=== PATIENT | female | born 1985 | race Caucasian/White ===

== ENCOUNTER 2018-12-12 13:33 | Inpatient (IN) | payer BC ==
[2018-12-12] MEDS: ONDANSETRON (ODT) 4 MG TAB ODT (14:33)
[2018-12-12] MEDS: HYDROCODONE/APAP (5/325) TAB PO (14:33)
[2018-12-12 14:41] LABS: ADD MAN DIFF? NO
[2018-12-12 14:44] LABS: WHITE BLOOD COUNT 24.7 10^3/ul (4.8-10.8)
[2018-12-12 14:44] LABS: ABNORMAL IP MESSAGE 1; BASOPHILS % 0.2 % (0.0-2.0); EOSINOPHILS # 0.1 10^3/ul (0.0-0.5); EOSINOPHILS % 0.3 % (0.0-7.0); HEMATOCRIT 35.5 % (37.0-47.0); HEMOGLOBIN 11.2 g/dl (12.0-16.0); LYMPHOCYTES # 1.5 10^3/ul (0.8-2.9); LYMPHOCYTES % 5.9 % (15.0-51.0); MEAN CORPUSCULAR HEMOGLOBIN 27.1 pg (29.0-33.0); MEAN CORPUSCULAR HGB CONC 31.5 g/dl (32.0-37.0); MEAN PLATELET VOLUME 10.4 fl (7.4-10.4); MONOCYTE # 1.1 10^3/ul (0.3-0.9); MONOCYTES % 4.3 % (0.0-11.0); NEUTROPHIL # 21.9 10^3/ul (1.6-7.5); NEUTROPHILS % 88.5 % (39.0-77.0); PLATELET COUNT 260 10^3/UL (140-415); RED BLOOD COUNT 4.13 10^6/ul (4.20-5.40); RED CELL DISTRIBUTION WIDTH 14.4 % (11.5-14.5)
[2018-12-12 14:45] LABS: POSITIVE DIFF @See below
[2018-12-12 14:47] LABS: ADD UMIC YES; UR ASCORBIC ACID NEGATIVE (NEGATIVE); UR BACTERIA FEW /HPF (NONE SEEN); UR BILIRUBIN (Dip) NEGATIVE (NEGATIVE); UR BLOOD (Dip) 3+ mg/dL (NEGATIVE); UR CLARITY CLEAR (CLEAR); UR COLOR YELLOW (YELLOW); UR GLUCOSE (Dip) NEGATIVE (NEGATIVE); UR KETONES (Dip) NEGATIVE (NEGATIVE); UR LEUKOCYTE ESTERASE (Dip) TRACE Leu/ul (NEGATIVE); UR MUCUS FEW /HPF (NONE SEEN); UR NITRITE (Dip) NEGATIVE (NEGATIVE); UR RBC 15 /HPF (0-5); UR SPECIFIC GRAVITY (Dip) 1.006 (1.003-1.030); UR SQUAMOUS EPITHELIAL CELL FEW /HPF (FEW); UR TOTAL PROTEIN (Dip) NEGATIVE (NEGATIVE); UR UROBILINOGEN (Dip) NEGATIVE (NEGATIVE); UR WBC 2 /HPF (0-5)
[2018-12-12 15:04] LABS: ALANINE AMINOTRANSFERASE 14 IU/L (13-69); ALBUMIN 3.8 g/dl (3.3-4.9); ALBUMIN/GLOBULIN RATIO 1.11; ALKALINE PHOSPHATASE 84 IU/L (42-121); ANION GAP 8 (5-13); ASPARTATE AMINO TRANSFERASE 17 IU/L (15-46); BILIRUBIN,INDIRECT 0.5 mg/dl (0-1.1); BILIRUBIN,TOTAL 0.5 mg/dl (0.2-1.3); BLOOD UREA NITROGEN 6 mg/dl (7-20); CALCIUM 9.2 mg/dl (8.4-10.2); CARBON DIOXIDE 29 mmol/L (21-31); CHLORIDE 100 mmol/L (97-110); CREATININE 0.86 mg/dl (0.44-1.00); Estimated GFR > 60 mL/min (>60); GLUCOSE 106 mg/dl (70-220); LIPASE < 10 U/L (23-300); POTASSIUM 3.6 mmol/L (3.5-5.1); SODIUM 137 mmol/L (135-144); TOTAL PROTEIN 7.2 g/dl (6.1-8.1)
[2018-12-12] MEDS: SOD CHLORIDE 0.9% 100 ML (16:04)
[2018-12-12] MEDS: IOHEXOL 300MG/ML 150 ML BTL ×2 (16:04→20:45)
[2018-12-12] MEDS: SODIUM CHLORIDE 0.9% 1L BAG IV* (17:44)
[2018-12-12] MEDS: PIPER-TAZO 3.375 GM IV (PMX) 100 ML IVPB (17:44)
[2018-12-12 18:18] LABS: PROTIME 15.3 Sec (11.9-14.9); PT RATIO 1.2
[2018-12-12 18:19] LABS: PARTIAL THROMBOPLASTIN TIME 33.6 Sec (23.0-35.0)
[2018-12-12] MEDS ORDERED: NACL 0.9% 3 ML SYG IV (18:30)
[2018-12-12] MEDS ORDERED: MAGNESIUM HYDROXIDE 30ML CUP PO (18:30)
[2018-12-12] MEDS ORDERED: ACETAMINOPHEN 325 MG TAB PO ×2 (18:30)
[2018-12-12] MEDS ORDERED: ONDANSETRON 4 MG INJ IV ×2 (18:30)
[2018-12-12] MEDS ORDERED: NITROGLYCERIN (SL) 0.4 MG TAB SL (18:30)
[2018-12-12] MEDS ORDERED: hydrALAzine 20 MG INJ IV (18:30)
[2018-12-12] MEDS ORDERED: LORAZEPAM 2 MG INJ IV (18:30)
[2018-12-12] MEDS ORDERED: HYDROCODONE/APAP (5/325) TAB PO (18:30)
[2018-12-12] MEDS ORDERED: DOCUSATE SODIUM 100 MG CAP PO (18:30)
[2018-12-12] MEDS: NICOTINE (21 MG/24 HR) PATCH TRANSDERM (19:07)
[2018-12-12] MEDS: SOD CHLORIDE 0.9% 1,000 ML IV ×2 (19:12→23:29)
[2018-12-12 20:05] LABS: FREE T4 (FREE THYROXINE) 0.93 ng/dl (0.79-2.35)
[2018-12-12 23:06] LABS: LACTIC ACID 0.9 mmol/L (0.5-2.0)
[2018-12-12] MEDS: morphine 2 MG INJ IV (23:16)
[2018-12-12] MEDS: HEPARIN 5,000 UNIT/1 ML VIAL SC (23:26)
[2018-12-13] MEDS: ALBUTEROL/IPRATROPIUM (NEB) 3 ML AMP HHN (00:10)
[2018-12-13] MEDS ORDERED: KETOROLAC 30 MG INJ IV (01:30)
[2018-12-13] MEDS: SOD CHLORIDE 0.9% 1,000 ML IV ×2 (04:02→08:32)
[2018-12-13] MEDS: PANTOPRAZOLE 40 MG INJ IV (05:41)
[2018-12-13 05:49] LABS: ADD MAN DIFF? NO
[2018-12-13 05:54] LABS: BASOPHILS % 0.2 % (0.0-2.0); EOSINOPHILS # 0.2 10^3/ul (0.0-0.5); EOSINOPHILS % 1.7 % (0.0-7.0); HEMATOCRIT 31.2 % (37.0-47.0); HEMOGLOBIN 9.6 g/dl (12.0-16.0); LYMPHOCYTES # 1.4 10^3/ul (0.8-2.9); MEAN CORPUSCULAR HEMOGLOBIN 26.8 pg (29.0-33.0); MEAN CORPUSCULAR HGB CONC 30.8 g/dl (32.0-37.0); MEAN CORPUSCULAR VOLUME 87.2 fl (82.0-101.0); MEAN PLATELET VOLUME 11.2 fl (7.4-10.4); MONOCYTE # 0.7 10^3/ul (0.3-0.9); MONOCYTES % 5.3 % (0.0-11.0); NEUTROPHIL # 10.3 10^3/ul (1.6-7.5); NEUTROPHILS % 81.3 % (39.0-77.0); PLATELET COUNT 239 10^3/UL (140-415); RED BLOOD COUNT 3.58 10^6/ul (4.20-5.40); RED CELL DISTRIBUTION WIDTH 14.4 % (11.5-14.5)
[2018-12-13 05:54] LABS: WHITE BLOOD COUNT 12.6 10^3/ul (4.8-10.8)
[2018-12-13 06:24] LABS: ANION GAP 6 (5-13); BLOOD UREA NITROGEN 6 mg/dl (7-20); CALCIUM 8.4 mg/dl (8.4-10.2); CARBON DIOXIDE 26 mmol/L (21-31); CHLORIDE 106 mmol/L (97-110); Estimated GFR > 60 mL/min (>60); GLUCOSE 88 mg/dl (70-220); MAGNESIUM 2.1 mg/dl (1.7-2.5); PHOSPHORUS 3.2 mg/dl (2.5-4.9); POTASSIUM 3.3 mmol/L (3.5-5.1); SODIUM 138 mmol/L (135-144)
[2018-12-13] MEDS: morphine 2 MG INJ IV (06:45)
[2018-12-13 07:06] LABS: CHOL/HDL RATIO 3.3 RATIO; HDL CHOLESTEROL 36 mg/dl (34-82); LDL CHOLESTEROL,CALCULATED 72 mg/dl; TRIGLYCERIDES 63 mg/dl (0-149)
[2018-12-13 07:06] LABS: CHOLESTEROL 121 mg/dl (100-200)
[2018-12-13 07:19] LABS: HEMOGLOBIN A1C 5.2 % (0-5.9)
[2018-12-13] MEDS: NICOTINE (21 MG/24 HR) PATCH TRANSDERM (08:31)
[2018-12-13] MEDS: HEPARIN 5,000 UNIT/1 ML VIAL SC (08:31)
[2018-12-13] MEDS: LEVOFLOXACIN 750MG/D5W (PMX) 150 ML IVPB (08:32)
[2018-12-13] MEDS: POTASSIUM CHLORIDE 20 MEQ POWDER FOR ORAL SOLN PO (10:15)
[2018-12-13] MEDS ORDERED: POTASSIUM CHLORIDE 100 ML IVPB (10:30)
== END 2018-12-13 14:50 | disposition home or self-care (01) | DRG 389 ==
LOC: FTE 13:33 → PP2 18:03
DX: K56.609 Unspecified intestinal obstruction, unspecified as to partial versus complete obstruction (principal); N39.0 Urinary tract infection, site not specified; F17.210 Nicotine dependence, cigarettes, uncomplicated
CPT/HCPCS: 36415; 74177; 74250; 76830; 76856; 80048; 80053; 80061; 81001; 81025; 83036; 83605; 83690; 83735; 84100; 84439; 84443; 85025; 85610; 85730; 87040-91; 87081; 87086; 96365; 99285-25